=== PATIENT | male | born 1985 | race African-American/Black ===

== ENCOUNTER 2016-07-19 21:53 | Emergency (ER) | payer BC, OTHER ==
[~2016-07-19] VITALS: Ht 170.2 cm; Wt 65.8 kg
--- NOTE | 2016-07-19 22:23 | PHYS DOC ---
Past Medical History Past Medical History: Asthma, Seizure Past Surgical History: No Surgical History Alcohol Use: None Drug Use: None Adult General Chief Complaint Chief Complaint: Palpitations HPI HPI Patient is a 30 year old male who presents with complaint chest pain and palpitations which started approximately 1 hour prior to arrival. Patient states that he has had similar symptoms in the past but states he has not had an episode for over a year. Patient states that he was sitting on the couch watching TV when the symptoms occurred. When asked if the patient was under stress at the time, the patient states "I could've been." Patient states his pain currently is 10 out of 10 and is in the middle of his chest. Patient denies radiation of pain. Patient states that he has associated shortness of breath. Patient denies any known exacerbating factors. History of seizure disorder and is currently on Depakote. Review of Systems Review of Systems Constitutional: Denies fever or chills [] Eyes: Denies change in visual acuity, redness, or eye pain [] HENT: Denies nasal congestion or sore throat [] Respiratory: Shortness of breath [] Cardiovascular: Chest pain, palpitations [] GI: Denies abdominal pain, nausea, vomiting, bloody stools or diarrhea [] : Denies dysuria or hematuria [] Musculoskeletal: Denies back pain or joint pain [] Integument: Denies rash or skin lesions [] Neurologic: Denies headache, focal weakness or sensory changes [] Current Medications Current Medications Current Medications Medications (Trade) Dose Ordered Sig/Bird Start Time Stop Time Status Last Admin Dose Admin Aspirin (Children'S Aspirin) 324 mg 1X ONCE 07/19/16 22:30 07/19/16 22:31 DC 07/19/16 22:25 324 MG Lorazepam 1 mg 1 mg 1X ONCE 07/19/16 22:30 07/19/16 22:31 DC 07/19/16 22:24 1 MG Sodium Chloride (Iv Sodium Chloride 0.9% 1000ml Bag) 1,000 ml @ 1,000 mls/hr Q1H 07/19/16 22:30 07/19/16 23:29 DC 07/19/16 22:24 1,000 MLS/HR Allergies Allergies Allergies Coded Allergies Type Severity Reaction Last Updated Verified No Known Drug Allergies 07/19/16 No Physical Exam Physical Exam Constitutional: Alert, afebrile, appears anxious. [] HENT: Normocephalic, atraumatic, bilateral external ears normal, oropharynx moist, no oral exudates, nose normal. [] Eyes: PERRLA, EOMI, conjunctiva normal, no discharge. [] Neck: Normal range of motion, no tenderness, supple, no stridor. [] Cardiovascular:Heart rate regular rhythm, no murmur [] Lungs & Thorax: Bilateral breath sounds clear to auscultation [] Abdomen: Bowel sounds normal, soft, no tenderness, no masses, no pulsatile masses. [] Skin: Warm, dry, no erythema, no rash. [] Back: No tenderness, no CVA tenderness. [] Extremities: No tenderness, no cyanosis, no clubbing, ROM intact, no edema. [] Neurologic: Alert and oriented X 3, normal motor function, normal sensory function, no focal deficits noted. [] Current Patient Data Vital Signs Vital Signs Date Time Temp Pulse Resp B/P Pulse Ox O2 Delivery O2 Flow Rate FiO2 07/19/16 22:05 98.1 78 16 121/83 99 Room Air 98.1 Lab Values Laboratory Tests Test 07/19/16 22:00 07/19/16 22:54 White Blood Count 5.5x10^3/uL (4.0-11.0) Red Blood Count 6.63x10^6/uL (4.30-5.70) H Hemoglobin 14.1g/dL (13.0-17.5) Hematocrit 44.9% (39.0-53.0) Mean Corpuscular Volume 68fL (79-100) L Mean Corpuscular Hemoglobin 21pg (25-35) L Mean Corpuscular Hemoglobin Concent 32g/dL (31-37) Red Cell Distribution Width 15.5% (11.5-14.5) H Platelet Count 161x10^3/uL (140-400) Neutrophils (%) (Auto) 40% (31-73) Lymphocytes (%) (Auto) 42% (24-48) Monocytes (%) (Auto) 13% (0-9) H Eosinophils (%) (Auto) 4% (0-3) H Basophils (%) (Auto) 1% (0-3) Neutrophils # (Auto) 2.2x10^3uL (1.8-7.7) Lymphocytes # (Auto) 2.3x10^3/uL (1.0-4.8) Monocytes # (Auto) 0.7x10^3/uL (0.0-1.1) Eosinophils # (Auto) 0.2x10^3/uL (0.0-0.7) Basophils # (Auto) 0.0x10^3/uL (0.0-0.2) Platelet Estimate Adequate (ADEQUATE) Hypochromasia Mod Microcytosis Marked D-Dimer (Stephanie) < 0.27ug/mlFEU (0.00-0.50) Sodium Level 142mmol/L (136-145) Potassium Level 3.4mmol/L (3.5-5.1) L Chloride Level 104mmol/L (98-107) Carbon Dioxide Level 30mmol/L (21-32) Anion Gap 8 (6-14) Blood Urea Nitrogen 12mg/dL (8-26) Creatinine 1.2mg/dL (0.7-1.3) Estimated GFR (Cockcroft-Gault) 70.2 Glucose Level 101mg/dL (70-99) H Calcium Level 8.5mg/dL (8.5-10.1) Magnesium Level 1.8mg/dL (1.8-2.4) Total Bilirubin 0.3mg/dL (0.2-1.0) Direct Bilirubin 0.1mg/dL (0.0-0.2) Aspartate Amino Transferase (AST) 22U/L (15-37) Alanine Aminotransferase (ALT) 46U/L (16-63) Alkaline Phosphatase 91U/L (46-116) Creatine Kinase 137U/L (39-308) Creatine Kinase MB (Mass) < 0.5ng/mL (0.0-3.6) Creatine Kinase MB Relative Index 0.4% (0-4) Troponin I Quantitative < 0.017ng/mL (0.000-0.055) Total Protein 7.7g/dL (6.4-8.2) Albumin 3.7g/dL (3.4-5.0) Lipase 224U/L (73-393) Urine Collection Type Unknown Urine Color Yellow Urine Clarity Clear Urine pH 7.0 Urine Specific [place] 1.020 Urine Protein Negativemg/dL (NEG-TRACE) Urine Glucose (UA) Negativemg/dL (NEG) Urine Ketones (Stick) Negativemg/dL (NEG) Urine Blood Negative (NEG) Urine Nitrite Negative (NEG) Urine Bilirubin Negative (NEG) Urine Urobilinogen Dipstick 1.0mg/dL (0.2 mg/dL) Urine Leukocyte Esterase Negative (NEG) Urine RBC 0/HPF (0-2) Urine WBC 0/HPF (0-4) Urine Squamous Epithelial Cells Few/LPF Urine Bacteria 0/HPF (0-FEW) Urine Mucus Mod/LPF Urine Opiates Screen Neg (NEG) Urine Methadone Screen Neg (NEG) Urine Barbiturates Neg (NEG) Urine Phencyclidine Screen Neg (NEG) Urine Amphetamine/Methamphetamine Neg (NEG) Urine Benzodiazepines Screen Neg (NEG) Urine Cocaine Screen Neg (NEG) Urine Cannabinoids Screen Neg (NEG) Urine Ethyl Alcohol Neg (NEG) Laboratory Tests 07/19/16 22:00 Laboratory Tests 07/19/16 22:00 EKG EKG Interpreted by me: Heart rate 77, sinus rhythm, normal intervals, normal axis, no acute ST/T-wave abnormalities present [] Radiology/Procedures Radiology/Procedures One view AP chest x-ray interpreted by me: No pulmonary infiltrates or effusions , normal cardiac silhouette [] Course & Med Decision Making Course & Med Decision Making Pertinent Labs and Imaging studies reviewed. (See chart for details) Patient was given aspirin and Ativan in the emergency department. Patient's labwork unremarkable and does not show any acute cardiopulmonary life- threatening process. Patient's symptoms are likely consistent with acid reflux disease which patient admits to history of. Patient's symptoms may also be due to chest wall inflammation. Patient will be started on Pepcid and recommended to use Aleve twice daily for the next week with recommended follow-up in 3-5 days with primary doctor. Advised return emergency department for any worsening symptoms. Patient voiced understanding and in agreement with treatment plan. Dragon Disclaimer Dragon Disclaimer This electronic medical record was generated, in whole or in part, using a voice recognition dictation system. Departure Departure Impression: Primary Impression: Chest pain Disposition: HOME, SELF-CARE Condition: IMPROVED Patient Instructions: Chest Pain (Nonspecific) Additional Instructions: Follow-up to primary doctor in the next 3-5 days. It is recommended that you use Aleve twice daily for the next 7 days for treatment of your pain. Return to the emergency department for any worsening symptoms. Scripts Famotidine (Pepcid)20 Mg [id number] Mg PO BID #30 TAB Prov:THA SMITH MD 07/19/16 Problem Qualifiers Primary Impression: Chest pain Chest pain type: unspecified Qualified Code: R07.9 - Chest pain, unspecified THA SMITH MD Jul 19, 2016 22:23
[2016-07-19 22:27] LABS: BASO % 1 % (0-3); EOS % 4 % (0-3); HEMATOCRIT 44.9 % (39.0-53.0); HEMOGLOBIN 14.1 g/dL (13.0-17.5); LYMPH # 2.3 x10^3/uL (1.0-4.8); LYMPH % 42 % (24-48); MEAN CORPUSCULAR HEMOGLOBIN 21 pg (25-35); MEAN CORPUSCULAR HGB CONC 32 g/dL (31-37); MEAN CORPUSCULAR VOLUME 68 fL (79-100); MONO % 13 % (0-9); NEUT % 40 % (31-73); PLATELET COUNT 161 x10^3/uL (140-400); RED BLOOD COUNT 6.63 x10^6/uL (4.30-5.70); RED CELL DISTRIBUTION WIDTH 15.5 % (11.5-14.5); WHITE BLOOD COUNT 5.5 x10^3/uL (4.0-11.0)
[2016-07-19] MEDS ORDERED: IV NORMAL SALINE 1000ML BAG 1,000 ML IV SCH (22:30)
[2016-07-19] MEDS ORDERED: ASPIRIN CHEWABLE 81 MG TABLET. PO ONE (22:30)
[2016-07-19 22:38] LABS: CALCIUM 8.5 mg/dL (8.5-10.1); CREATININE 1.2 mg/dL (0.7-1.3); GFR 70.2; POTASSIUM 3.4 mmol/L (3.5-5.1)
[2016-07-19 22:44] LABS: ALBUMIN 3.7 g/dL (3.4-5.0); DIRECT BILIRUBIN 0.1 mg/dL (0.0-0.2); MAGNESIUM 1.8 mg/dL (1.8-2.4); TOTAL BILIRUBIN 0.3 mg/dL (0.2-1.0); TOTAL PROTEIN 7.7 g/dL (6.4-8.2)
[2016-07-19 22:50] LABS: PLT ESTIMATE ADEQUATE (ADEQUATE)
[2016-07-19 22:51] LABS: CREATINE KINASE 137 U/L (39-308); HYPOCHROMIA MOD; MICROCYTOSIS MARKED
[2016-07-19 22:57] LABS: CKMB MASS < 0.5 ng/mL (0.0-3.6)
[2016-07-19 23:01] LABS: BILIRUBIN,URINE NEGATIVE (NEG); GLUCOSE,URINE NEGATIVE (NEG); NITRITE,URINE NEGATIVE (NEG); PROTEIN,URINE NEGATIVE (NEG-TRACE)
[2016-07-19 23:06] LABS: BACTERIA,URINE 0 /HPF (0-FEW); RBC,URINE 0 /HPF (0-2); SQUAMOUS EPITHELIAL CELL,UR FEW /LPF; WBC,URINE 0 /HPF (0-4)
[2016-07-19 23:07] LABS: BARBITURATES NEG (NEG); BENZODIAZEPINES NEG (NEG); CANNABINOIDS NEG (NEG); COCAINE NEG (NEG); METHADONE NEG (NEG); OPIATES NEG (NEG); PHENCYCLIDINE NEG (NEG)
[2016-07-19] MEDS ORDERED: FAMO-63 PO (23:56)
[2016-07-20] VITALS: BP 114/76
--- NOTE | 2016-07-20 08:32 | EKG ---
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
--- NOTE | 2016-07-20 08:46 | RAD ---
Portable AP view CXR: Clinical indications: Chest pain today. Comparison: June 10, 2010. Findings: No acute lung infiltrate or pleural effusion or pulmonary edema or lung mass or pneumothorax is seen. The heart size, pulmonary vasculature, mediastinum and both tamiko are unremarkable. Impression: No acute radiographic abnormality is seen.
== END 2016-07-20 00:10 | disposition home or self-care (01) ==
LOC: ER 21:53
DX: R07.9 Chest pain, unspecified (principal); R00.2 Palpitations; R06.02 Shortness of breath; J45.909 Unspecified asthma, uncomplicated; G40.909 Epilepsy, unspecified, not intractable, without status epilepticus; Z79.899 Other long term (current) drug therapy
CPT/HCPCS: 36415; 71010; 80048; 80076; 80305; 80320; 81001; 82553; 83690; 83735; 84484; 85007; 85027; 85379; 93005; 96361; 96374; 99285; J2060; J7030; G0481

== ENCOUNTER 2016-10-21 12:02 | Emergency (ER) | payer BC, OTHER ==
[~2016-10-21] VITALS: Ht 170.2 cm; Wt 65.8 kg
[~2016-10-21 12:02] MED LIST: FAMO-63 PO
[2016-10-21] MEDS ORDERED: cefTRIAXone IM 250 MG VIAL IM ONE (12:45)
[2016-10-21] MEDS ORDERED: AZITHROMYCIN 250 MG TABLET. PO ONE (12:45)
[2016-10-21] MEDS ORDERED: metroNIDAZOLE 500 MG TABLET PO ONE (12:45)
[2016-10-21 13:15] VITALS: BP 158/99
--- NOTE | 2016-10-21 13:23 | PHYS DOC ---
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 Spoke with patient in regards to being sexually active he has one sexual partner with no protection. He states his partner has been treated for a social transmitted infection which she thinks was Trichomonas. He denies any penile drainage she denies any difficulty with urination. He is unsure whether he is having some abdominal pain or discomfort. He denies any nausea or vomiting he denies any back pain or discomfort. Review of Systems Review of Systems Constitutional: Denies fever or chills [] Eyes: Denies change in visual acuity, redness, or eye pain [] HENT: Denies nasal congestion or sore throat [] Respiratory: Denies cough or shortness of breath [] Cardiovascular: No additional information not addressed in HPI [] GI: Denies abdominal pain, nausea, vomiting, bloody stools or diarrhea [] : Denies dysuria or hematuria [] Musculoskeletal: Denies back pain or joint pain [] Integument: Denies rash or skin lesions [] Neurologic: Denies headache, focal weakness or sensory changes [] Endocrine: Denies polyuria or polydipsia [] Patient states he is here to be treated for sexually transmitted infections. Current Medications Current Medications Current Medications Medications (Trade) Dose Ordered Sig/Bird Start Time Stop Time Status Last Admin Dose Admin Azithromycin (Zithromax) 1,000 mg 1X ONCE 10/21/16 12:45 10/21/16 12:46 DC Ceftriaxone Sodium (Rocephin Im) 250 mg 1X ONCE 10/21/16 12:45 10/21/16 12:46 DC Metronidazole (Flagyl) 2,000 mg 1X ONCE 10/21/16 12:45 10/21/16 12:46 DC Allergies Allergies Allergies Coded Allergies Type Severity Reaction Last Updated Verified No Known Drug Allergies 07/19/16 No Physical Exam Physical Exam Constitutional: Well developed, well nourished, no acute distress, non-toxic appearance. [] HENT: Normocephalic, atraumatic, bilateral external ears normal, oropharynx moist, no oral exudates, nose normal. [] Eyes: PERRLA, EOMI, conjunctiva normal, no discharge. [] Neck: Normal range of motion, no tenderness, supple, no stridor. [] Cardiovascular:Heart rate regular rhythm, no murmur [] Lungs & Thorax: Bilateral breath sounds clear to auscultation [] Skin: Warm, dry, no erythema, no rash. [] Back: No tenderness Extremities: No tenderness, no cyanosis, no clubbing, ROM intact, no edema. [] Neurologic: Alert and oriented X 3, normal motor function, normal sensory function, no focal deficits noted. [] Psychologic: Affect normal, judgement normal, mood normal. [] EKG EKG [] Radiology/Procedures Radiology/Procedures [] Course & Med Decision Making Course & Med Decision Making Pertinent Labs and Imaging studies reviewed. (See chart for details) Patient's urine was sent for STD check. Patient will be prophylactically be treated for STDs with Rocephin and Zithromax and Flagyl. Patient was instructed to not have sexual intercourse for the next 2 weeks. He was also instructed he would be notified by phone if the results are positive. Patient will be discharged home in stable condition signs and symptoms to return to the emergency department have been provided. [] Dragon Disclaimer Dragon Disclaimer This electronic medical record was generated, in whole or in part, using a voice recognition dictation system. Departure Departure Impression: Primary Impression: Concern about STD in male without diagnosis Disposition: 01 HOME, SELF-CARE Condition: STABLE Referrals: JO ANN SCOTT (PCP) Patient Instructions: Sexually Transmitted Disease Additional Instructions: Activity as tolerated. Medications as prescribed. Such as Tylenol or ibuprofen for pain and discomfort. You've been treated for sexual transmitted infections. You'll be contacted by phone if the results are positive. Refrain from sexual intercourse for the next 2 weeks. In the future wear condoms or refrain from sexual intercourse to prevent sexually transmitted infections from being transmitted. Follow-up the primary care physician in the next week. Return back to emergency prior signs symptoms become worse. MAGEN MITCHELL APRN Oct 21, 2016 13:23
== END 2016-10-21 13:42 | disposition home or self-care (01) ==
LOC: ER 12:02
DX: Z20.2 Contact with and (suspected) exposure to infections with a predominantly sexual mode of transmission (principal); J45.909 Unspecified asthma, uncomplicated
CPT/HCPCS: 87491; 87591; 96372; 99284; J0696; Q0144

== ENCOUNTER 2017-04-11 10:39 | Emergency (ER) | payer OTHER, BC ==
[2017-04-11 11:25] LABS: BILIRUBIN,URINE SMALL (NEG); CLARITY,URINE CLOUDY; COLOR,URINE YELLOW; GLUCOSE,URINE NEGATIVE (NEG); NITRITE,URINE NEGATIVE (NEG); PROTEIN,URINE NEGATIVE (NEG-TRACE)
[2017-04-11 11:38] LABS: BACTERIA,URINE MOD /HPF (0-FEW); RBC,URINE FOBS /HPF (0-2); WBC,URINE TNTC /HPF (0-4)
[2017-04-11] MEDS: AZITHROMYCIN 250 MG TABLET. PO (12:07)
[2017-04-11] MEDS: cefTRIAXone IM 250 MG VIAL IM (12:08)
[2017-04-11] MEDS: metroNIDAZOLE 500 MG TABLET PO (12:08)
== END 2017-04-11 12:25 | disposition home or self-care (01) ==
LOC: ER 10:39
DX: Z11.3 Encounter for screening for infections with a predominantly sexual mode of transmission (principal); J45.909 Unspecified asthma, uncomplicated
CPT/HCPCS: 81001; 87491; 87591; 96372; 99284-25; J0696; Q0144

== ENCOUNTER 2018-02-14 19:48 | Emergency (ER) | payer OTHER ==
[~2018-02-14] VITALS: Ht 172.7 cm; Wt 65.8 kg
[~2018-02-14 19:48] MED LIST changes: +CYCL5TAB PO; +DOXY100T PO; +IBUP-1060 PO
--- NOTE | 2018-02-14 20:10 | PHYS DOC ---
Past Medical History Past Medical History: Asthma, Seizure, Other Additional Past Medical Histor: Past Surgical History: No Surgical History Alcohol Use: Rarely Drug Use: None Adult General Chief Complaint Chief Complaint: SEIZURE HPI HPI Patient is a 32 year old male presenting brought in by ambulance blood sugar 106 had a apparent witnessed seizure at [facility] apparently he has known seizure disorder who tells me he is not on any medications for that he does have a prior history of a traumatic brain injury. 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 Review of Systems Review of Systems Constitutional: Denies fever or chills [] Eyes: Denies change in visual acuity, redness, or eye pain [] HENT: Denies nasal congestion or sore throat [] Respiratory: Denies cough or shortness of breath [] Cardiovascular: No additional information not addressed in HPI [] GI: Denies abdominal pain, nausea, vomiting, bloody stools or diarrhea [] All other systems were reviewed and found to be within normal limits, except as documented in this note. Current Medications Current Medications Current Medications Medications (Trade) Dose Ordered Sig/Bird Start Time Stop Time Status Last Admin Dose Admin Lorazepam (Ativan) 2 mg 1X ONCE 02/14/18 20:30 02/14/18 20:31 DC 02/14/18 20:28 2 MG Allergies Allergies Allergies Coded Allergies Type Severity Reaction Last Updated Verified No Known Drug Allergies 07/19/16 No Physical Exam Physical Exam Constitutional: Well developed, well nourished, no acute distress, non-toxic appearance. [] HENT: Normocephalic, atraumatic, bilateral external ears normal, oropharynx moist, no oral exudates, nose normal. [] Eyes: PERRLA, EOMI, conjunctiva normal, no discharge. [] Neck: Normal range of motion, no tenderness, supple, no stridor. [] Pulmonary: Normal respiratory effort no increased work of breathing no obvious chest wall trauma Skin: Warm, dry, no erythema, no rash. [] Back: No tenderness, no CVA tenderness. [] Extremities: No tenderness, no cyanosis, no clubbing, ROM intact, no edema. [] Neurologic: pt has strength and sensation intact. does appear to have retsing tremor that gets worse when i touch him lightly. cn's intact. gcs 15. Psychologic: Affect normal, judgement normal, mood normal. [] Current Patient Data Vital Signs Vital Signs Date Time Temp Pulse Resp B/P (MAP) Pulse Ox O2 Delivery O2 Flow Rate FiO2 02/14/18 20:12 97.8 86 20 144/87 (106) 100 Room Air 97.8 Lab Values Laboratory Tests Test 02/14/18 20:20 02/14/18 21:05 White Blood Count 4.8 x10^3/uL (4.0-11.0) Red Blood Count 6.47 x10^6/uL (4.30-5.70) H Hemoglobin 14.3 g/dL (13.0-17.5) Hematocrit 44.8 % (39.0-53.0) Mean Corpuscular Volume 69 fL (79-100) L Mean Corpuscular Hemoglobin 22 pg (25-35) L Mean Corpuscular Hemoglobin Concent 32 g/dL (31-37) Red Cell Distribution Width 16.1 % (11.5-14.5) H Platelet Count 134 x10^3/uL (140-400) L Neutrophils (%) (Auto) 33 % (31-73) Lymphocytes (%) (Auto) 50 % (24-48) H Monocytes (%) (Auto) 14 % (0-9) H Eosinophils (%) (Auto) 2 % (0-3) Basophils (%) (Auto) 0 % (0-3) Neutrophils # (Auto) 1.6 x10^3uL (1.8-7.7) L Lymphocytes # (Auto) 2.4 x10^3/uL (1.0-4.8) Monocytes # (Auto) 0.7 x10^3/uL (0.0-1.1) Eosinophils # (Auto) 0.1 x10^3/uL (0.0-0.7) Basophils # (Auto) 0.0 x10^3/uL (0.0-0.2) Platelet Estimate Decreased (ADEQUATE) Hypochromasia Mod Microcytosis Mod Ovalocytes Few Sodium Level 143 mmol/L (136-145) Potassium Level 3.4 mmol/L (3.5-5.1) L Chloride Level 108 mmol/L (98-107) H Carbon Dioxide Level 29 mmol/L (21-32) Anion Gap 6 (6-14) Blood Urea Nitrogen 9 mg/dL (8-26) Creatinine 1.1 mg/dL (0.7-1.3) Estimated GFR (Cockcroft-Gault) 92.7 BUN/Creatinine Ratio 8 (6-20) Glucose Level 78 mg/dL (70-99) Calcium Level 7.9 mg/dL (8.5-10.1) L Total Bilirubin 0.3 mg/dL (0.2-1.0) Aspartate Amino Transferase (AST) 25 U/L (15-37) Alanine Aminotransferase (ALT) 50 U/L (16-63) Alkaline Phosphatase 51 U/L (46-116) Total Protein 6.6 g/dL (6.4-8.2) Albumin 3.3 g/dL (3.4-5.0) L Albumin/Globulin Ratio 1.0 (1.0-1.7) Ethyl Alcohol Level < 10 mg/dL (0-10) Urine Collection Type Unknown Urine Color Yellow Urine Clarity Cloudy Urine pH 8.0 Urine Specific [place] 1.015 Urine Protein Negative mg/dL (NEG-TRACE) Urine Glucose (UA) Negative mg/dL (NEG) Urine Ketones (Stick) Negative mg/dL (NEG) Urine Blood Negative (NEG) Urine Nitrite Negative (NEG) Urine Bilirubin Negative (NEG) Urine Urobilinogen Dipstick 0.2 mg/dL (0.2 mg/dL) Urine Leukocyte Esterase Negative (NEG) Urine RBC 0 /HPF (0-2) Urine WBC Occ /HPF (0-4) Urine Squamous Epithelial Cells Occ /LPF Urine Bacteria 0 /HPF (0-FEW) Urine Opiates Screen Neg (NEG) Urine Methadone Screen Neg (NEG) Urine Barbiturates Neg (NEG) Urine Phencyclidine Screen Neg (NEG) Urine Amphetamine/Methamphetamine Neg (NEG) Urine Benzodiazepines Screen Neg (NEG) Urine Cocaine Screen Neg (NEG) Urine Cannabinoids Screen Neg (NEG) Urine Ethyl Alcohol Neg (NEG) Laboratory Tests 02/14/18 20:20 Laboratory Tests 02/14/18 20:20 EKG EKG [] Radiology/Procedures Radiology/Procedures [] Course & Med Decision Making Course & Med Decision Making Pertinent Labs and Imaging studies reviewed. (See chart for details) Referral male with a prior history of traumatic brain injury apparently has what he calls spells unclear if this was true epilepsy or pseudoseizures based on the history he never lost consciousness nevertheless we'll do a head CT and basic labs as well as give Ativan and reassessment. [] REEVALUATION ct head neg mild somnolence after ativan mom at bedside last seizure unknown but had been on antiepileptics as a kid keppra ordered rx. pt is on depakote for mood stabiliization advised pmd f/u within 1-2 weeks to check on effect of meds. mom agreeable questions answered. Dragon Disclaimer Dragon Disclaimer This electronic medical record was generated, in whole or in part, using a voice recognition dictation system. Departure Departure Impression: Primary Impression: Seizure Disposition: 01 HOME, SELF-CARE Condition: STABLE Referrals: JO ANN SCOTT MD (PCP) Scripts Levetiracetam (KEPPRA) 500 Mg Tablet 1 TAB PO BID, #60 TAB 1 Refill Prov: GLO VASQUEZ MD 02/14/18 GLO VASQUEZ MD Feb 14, 2018 20:10
[2018-02-14 20:40] LABS: BASO % 0 % (0-3); EOS # 0.1 x10^3/uL (0.0-0.7); EOS % 2 % (0-3); HEMATOCRIT 44.8 % (39.0-53.0); HEMOGLOBIN 14.3 g/dL (13.0-17.5); LYMPH # 2.4 x10^3/uL (1.0-4.8); LYMPH % 50 % (24-48); MEAN CORPUSCULAR HEMOGLOBIN 22 pg (25-35); MEAN CORPUSCULAR HGB CONC 32 g/dL (31-37); MEAN CORPUSCULAR VOLUME 69 fL (79-100); MONO # 0.7 x10^3/uL (0.0-1.1); MONO % 14 % (0-9); NEUT # 1.6 x10^3uL (1.8-7.7); NEUT % 33 % (31-73); PLATELET COUNT 134 x10^3/uL (140-400); RED BLOOD COUNT 6.47 x10^6/uL (4.30-5.70); RED CELL DISTRIBUTION WIDTH 16.1 % (11.5-14.5); WHITE BLOOD COUNT 4.8 x10^3/uL (4.0-11.0)
[2018-02-14 20:48] LABS: CALCIUM 7.9 mg/dL (8.5-10.1); CREATININE 1.1 mg/dL (0.7-1.3); GFR 92.7; POTASSIUM 3.4 mmol/L (3.5-5.1)
[2018-02-14 20:57] LABS: ALBUMIN 3.3 g/dL (3.4-5.0); TOTAL BILIRUBIN 0.3 mg/dL (0.2-1.0); TOTAL PROTEIN 6.6 g/dL (6.4-8.2)
[2018-02-14 21:10] LABS: HYPOCHROMIA MOD; MICROCYTOSIS MOD; OVALOCYTES FEW; PLT ESTIMATE DECREASED (ADEQUATE)
[2018-02-14 21:23] LABS: BILIRUBIN,URINE NEGATIVE (NEG); CLARITY,URINE CLOUDY; COLOR,URINE YELLOW; NITRITE,URINE NEGATIVE (NEG); PROTEIN,URINE NEGATIVE (NEG-TRACE); UROBILINOGEN,URINE 0.2 mg/dL (0.2 mg/dL)
[2018-02-14 21:29] LABS: BACTERIA,URINE 0 /HPF (0-FEW); RBC,URINE 0 /HPF (0-2); WBC,URINE OCC /HPF (0-4)
--- NOTE | 2018-02-14 21:29 | RAD ---
CT head without contrast 02/14/2018 Clinical indications: Seizure with history of brain trauma. COMPARISON: None. TECHNIQUE: Multiple CT images of the head were obtained without contrast. *One or more of the following individualized dose reduction techniques were utilized for this examination: 1. Automated exposure control. 2. Adjustment of the mA and/or kV according to patient size. 3. Use of iterative reconstruction technique. FINDINGS: No acute intracranial hemorrhage or extra-axial fluid collection. There is moderate atrophy of the right posterior cerebrum involving the posterior right frontal, parietal, posterior right temporal and occipital lobes with ex vacuo dilatation of the atrium and temporal horns right lateral ventricle. The moser-white matter interfaces are otherwise maintained. No midline shift. The basal cisterns are patent. IMPRESSION: 1. Moderate right posterior cerebral atrophy may be due to prior trauma, injury or infarct. 2. No acute intracranial hemorrhage. Electronically signed by: Lucho Hinojosa MD (02/14/2018 9:26 PM) [facility]
[2018-02-14 21:30] LABS: SQUAMOUS EPITHELIAL CELL,UR OCC /LPF
[2018-02-14 21:31] LABS: BARBITURATES NEG (NEG); BENZODIAZEPINES NEG (NEG); CANNABINOIDS NEG (NEG); COCAINE NEG (NEG); METHADONE NEG (NEG); OPIATES NEG (NEG); PHENCYCLIDINE NEG (NEG)
[2018-02-14 21:35] LABS: AMPHETAMINE/METHAMPHETAMINE NEG (NEG)
[2018-02-14] MEDS ORDERED: LEVE500T56 PO (21:42)
[2018-02-14 22:01] VITALS: BP 140/85
== END 2018-02-14 22:30 | disposition home or self-care (01) ==
LOC: ER 19:48
DX: R56.9 Unspecified convulsions (principal); J45.909 Unspecified asthma, uncomplicated; Z87.820 Personal history of traumatic brain injury
CPT/HCPCS: 36415; 70450; 80053; 80307; 81001; 85025; 96374; 99284; G0480; J2060

== ENCOUNTER 2018-02-21 12:15 | Emergency (ER) | payer OTHER ==
[~2018-02-21] VITALS: Ht 170.2 cm; Wt 68.0 kg
[~2018-02-21 12:15] MED LIST changes: +LEVE500T56 PO
[2018-02-21] MEDS ORDERED: levETIRAcetam 1,000 MG in IV DEXTROSE 5% 100ML 100 ML IV ONE (13:30)
[2018-02-21 13:50] LABS: CALCIUM 8.9 mg/dL (8.5-10.1); CREATININE 1.1 mg/dL (0.7-1.3); GFR 92.7; MAGNESIUM 1.6 mg/dL (1.8-2.4); POTASSIUM 3.8 mmol/L (3.5-5.1)
[2018-02-21 13:54] LABS: VAL ACID 57 mcg/mL (50-100)
[2018-02-21 15:00] VITALS: BP 109/64
[2018-02-21] MEDS ORDERED: LEVE500T56 PO (15:25)
--- NOTE | 2018-02-21 15:31 | PHYS DOC ---
Past Medical History Past Medical History: Asthma, Seizure, Other Additional Past Medical Histor: Past Surgical History: No Surgical History Alcohol Use: Rarely Drug Use: None Adult General Chief Complaint Chief Complaint: SEIZURE HPI HPI Patient is a 32 year old male who presents with seizure activity. Patient states he has had seizures his entire life. He suffered some sort of brain damage or head injury when he was 2 weeks old. Today, he presents to the ER complaining of some seizure activity which she states to be shaking of the right and left upper extremities that does expand to the lower extremities. He is uncertain if he fell or had any loss of consciousness. Patient states he has seizures every day. He is not currently taking medication for prophylaxis. No additional complaints. No recent illness. Of note, the patient was evaluated in this emergency department in the last 4 weeks for a very similar complaint. At that time, he was started on Keppra. Patient states he is not currently taking this medication however. Patient also states he has no primary neurologist. Review of Systems Review of Systems Constitutional: Denies fever Eyes: Denies change in visual acuity HENT: Denies nasal congestion or sore throat Respiratory: Denies cough or shortness of breath Cardiovascular: No additional information not addressed in HPI GI: Denies : Denies Musculoskeletal: Denies back pain Integument: Denies Neurologic: Denies headache Endocrine: Denies polyuria All other systems were reviewed and found to be within normal limits, except as documented in this note. Current Medications Current Medications Current Medications Medications (Trade) Dose Ordered Sig/Bird Start Time Stop Time Status Last Admin Dose Admin Levetiracetam 1000 mg/Dextrose 110 ml @ 440 mls/hr 1X ONCE 02/21/18 13:30 02/21/18 13:44 DC 02/21/18 13:43 440 MLS/HR Allergies Allergies Allergies Coded Allergies Type Severity Reaction Last Updated Verified No Known Drug Allergies 07/19/16 No Physical Exam Physical Exam Constitutional: Well developed, well nourished, no acute distress HENT: Normocephalic, atraumatic, bilateral external ears normal, oropharynx moist Eyes: PERRLA, EOMI, conjunctiva normal Neck: Normal range of motion, no tenderness, supple Cardiovascular:Heart rate regular rhythm, no murmur Lungs & Thorax: Bilateral breath sounds clear to auscultation Abdomen: Bowel sounds normal, soft, no tenderness Skin: Warm, dry Extremities: No tenderness, no trauma Neurologic: Alert and oriented X 3, normal motor function, normal sensory function, no focal deficits noted Psychologic: Affect normal Current Patient Data Vital Signs Vital Signs Date Time Temp Pulse Resp B/P (MAP) Pulse Ox O2 Delivery O2 Flow Rate FiO2 02/21/18 13:30 66 98 02/21/18 12:15 98.5 20 125/75 (92) Room Air 98.5 Lab Values Laboratory Tests Test 02/21/18 13:28 Sodium Level 143 mmol/L (136-145) Potassium Level 3.8 mmol/L (3.5-5.1) Chloride Level 105 mmol/L (98-107) Carbon Dioxide Level 29 mmol/L (21-32) Anion Gap 9 (6-14) Blood Urea Nitrogen 12 mg/dL (8-26) Creatinine 1.1 mg/dL (0.7-1.3) Estimated GFR (Cockcroft-Gault) 92.7 Glucose Level 104 mg/dL (70-99) H Calcium Level 8.9 mg/dL (8.5-10.1) Magnesium Level 1.6 mg/dL (1.8-2.4) L Valproic Acid Level 57 mcg/mL (50-100) Valproic Acid Last Dose Date 02/21/18 Valproic Acid Last Dose Time 0700 Laboratory Tests 02/21/18 13:28 EKG EKG [] Radiology/Procedures Radiology/Procedures [] Course & Med Decision Making Course & Med Decision Making Pertinent Labs and Imaging studies reviewed. (See chart for details) Patient was evaluated in the emergency department for seizure disorder. He is not currently compliant with any medical therapies to prevent seizures. He was given a Keppra load in the ER. He is again given a prescription for the same medication to take at home. No CT scan was indicated today. The patient was scanned already in the last couple of weeks on a prior visit to this ER. His neurologic exam was normal. Patient is strongly encouraged to fill the Medication take it. He is also provided the phone number to the on-call neurologist today and advised to contact that physician to make a follow-up appointment. All of his questions are answered prior to discharge home. No seizure activity during the ED course. Dragon Disclaimer Dragon Disclaimer This electronic medical record was generated, in whole or in part, using a voice recognition dictation system. Departure Departure Impression: Primary Impression: Seizure disorder Disposition: 01 HOME, SELF-CARE Condition: GOOD Referrals: BENTLEY HAYES MD Patient Instructions: Seizure, Adult Scripts Levetiracetam (KEPPRA) 500 Mg Tablet 500 MG PO BID for 30 Days, #60 TAB 2 Refills Prov: ARIE MALAGON DO 02/21/18 ARIE MALAGON DO Feb 21, 2018 15:31
== END 2018-02-21 15:45 | disposition home or self-care (01) ==
LOC: ER 12:15
DX: G40.909 Epilepsy, unspecified, not intractable, without status epilepticus (principal); J45.909 Unspecified asthma, uncomplicated
CPT/HCPCS: 36415; 80048; 80164; 83735; 96365; 99283; J1953

== ENCOUNTER 2018-02-27 23:44 | Emergency (ER) | payer OTHER ==
[~2018-02-27] VITALS: Ht 170.2 cm; Wt 68.0 kg
[2018-02-28 00:06] LABS: BASO # 0.1 x10^3/uL (0.0-0.2); BASO % 2 % (0-3); EOS # 0.1 x10^3/uL (0.0-0.7); EOS % 3 % (0-3); HEMATOCRIT 41.5 % (39.0-53.0); HEMOGLOBIN 13.5 g/dL (13.0-17.5); LYMPH # 2.4 x10^3/uL (1.0-4.8); LYMPH % 52 % (24-48); MEAN CORPUSCULAR HEMOGLOBIN 22 pg (25-35); MEAN CORPUSCULAR HGB CONC 33 g/dL (31-37); MEAN CORPUSCULAR VOLUME 69 fL (79-100); MONO # 0.6 x10^3/uL (0.0-1.1); MONO % 12 % (0-9); NEUT # 1.4 x10^3uL (1.8-7.7); NEUT % 31 % (31-73); PLATELET COUNT 135 x10^3/uL (140-400); RED BLOOD COUNT 6.01 x10^6/uL (4.30-5.70); RED CELL DISTRIBUTION WIDTH 15.7 % (11.5-14.5); WHITE BLOOD COUNT 4.6 x10^3/uL (4.0-11.0)
[2018-02-28 00:20] LABS: CALCIUM 8.8 mg/dL (8.5-10.1); CREATININE 1.3 mg/dL (0.7-1.3); GFR 76.5; POTASSIUM 3.5 mmol/L (3.5-5.1)
[2018-02-28 00:26] LABS: ALBUMIN 3.6 g/dL (3.4-5.0); ALBUMIN/GLOBULIN RATIO 1.1 (1.0-1.7); TOTAL BILIRUBIN 0.2 mg/dL (0.2-1.0); TOTAL PROTEIN 6.9 g/dL (6.4-8.2)
[2018-02-28] MEDS ORDERED: levETIRAcetam 500 MG in IV DEXTROSE 5% 100ML 100 ML IV ONE (00:30)
[2018-02-28 01:30] VITALS: BP 111/72
--- NOTE | 2018-02-28 01:40 | PHYS DOC ---
Past Medical History Past Medical History: Asthma, Seizure, Other Additional Past Medical Histor: Past Surgical History: No Surgical History Additional Information: FULL PACK A DAY Alcohol Use: None Drug Use: None Adult General Chief Complaint Chief Complaint: SEIZURE HPI HPI Patient is a 32-year-old male who presents from work with report of having had seizure. Coworkers state that patient appeared to have generalized shaking that they estimated at about 15 minutes. EMS indicates that patient had a repeat seizure ring their evaluation and an IV was established and patient was given IV Versed. EMS states that seizure at that point had resolved. Patient was seen here recently for seizure and had been started on Keppra. Patient states that he has been taking the Keppra as prescribed but he has not yet followed up with a neurologist. Patient does complain of body aches all over. He denies any chest pain, shortness of breath, nausea or vomiting. Patient denies any oral pain and was not incontinent of urine. Review of Systems Review of Systems Constitutional: Denies fever or chills [] Respiratory: Denies cough or shortness of breath [] Cardiovascular: No additional information not addressed in HPI [] Musculoskeletal: Complains of diffuse muscle and joint pain [] Integument: Denies rash or skin lesions [] Neurologic: Complains of seizure[] All other systems were reviewed and found to be within normal limits, except as documented in this note. Current Medications Current Medications Current Medications Medications (Trade) Dose Ordered Sig/Bird Start Time Stop Time Status Last Admin Dose Admin Levetiracetam 500 mg/Dextrose 105 ml @ 420 mls/hr 1X ONCE 02/28/18 00:30 02/28/18 00:44 DC 02/28/18 00:05 420 MLS/HR Allergies Allergies Allergies Coded Allergies Type Severity Reaction Last Updated Verified No Known Drug Allergies 07/19/16 No Physical Exam Physical Exam Constitutional: Well developed, well nourished, no acute distress, non-toxic appearance. [] HENT: Normocephalic, atraumatic, bilateral external ears normal, oropharynx moist, no oral exudates, nose normal. [] Eyes: PERRLA, EOMI, conjunctiva normal, no discharge. [] Neck: Normal range of motion, no tenderness, supple, no stridor. [] Cardiovascular:Heart rate regular rhythm, no murmur [] Lungs & Thorax: Bilateral breath sounds clear to auscultation [] Abdomen: Bowel sounds normal, soft, no tenderness, no masses, no pulsatile masses. [] Skin: Warm, dry, no erythema, no rash. [] Back: No tenderness, no CVA tenderness. [] Extremities: No tenderness, no cyanosis, no clubbing, ROM intact, no edema. [] Neurologic: Alert and oriented X 3, normal motor function, normal sensory function, no focal deficits noted. [] Psychologic: Affect normal, judgement normal, mood normal. [] Current Patient Data Vital Signs Vital Signs Date Time Temp Pulse Resp B/P (MAP) Pulse Ox O2 Delivery O2 Flow Rate FiO2 02/28/18 01:30 76 96 02/27/18 23:47 96.4 16 134/83 (100) Room Air 96.4 Lab Values Laboratory Tests Test 02/27/18 23:54 White Blood Count 4.6 x10^3/uL (4.0-11.0) Red Blood Count 6.01 x10^6/uL (4.30-5.70) H Hemoglobin 13.5 g/dL (13.0-17.5) Hematocrit 41.5 % (39.0-53.0) Mean Corpuscular Volume 69 fL (79-100) L Mean Corpuscular Hemoglobin 22 pg (25-35) L Mean Corpuscular Hemoglobin Concent 33 g/dL (31-37) Red Cell Distribution Width 15.7 % (11.5-14.5) H Platelet Count 135 x10^3/uL (140-400) L Neutrophils (%) (Auto) 31 % (31-73) Lymphocytes (%) (Auto) 52 % (24-48) H Monocytes (%) (Auto) 12 % (0-9) H Eosinophils (%) (Auto) 3 % (0-3) Basophils (%) (Auto) 2 % (0-3) Neutrophils # (Auto) 1.4 x10^3uL (1.8-7.7) L Lymphocytes # (Auto) 2.4 x10^3/uL (1.0-4.8) Monocytes # (Auto) 0.6 x10^3/uL (0.0-1.1) Eosinophils # (Auto) 0.1 x10^3/uL (0.0-0.7) Basophils # (Auto) 0.1 x10^3/uL (0.0-0.2) Platelet Estimate Pending Sodium Level 140 mmol/L (136-145) Potassium Level 3.5 mmol/L (3.5-5.1) Chloride Level 106 mmol/L (98-107) Carbon Dioxide Level 31 mmol/L (21-32) Anion Gap 3 (6-14) L Blood Urea Nitrogen 13 mg/dL (8-26) Creatinine 1.3 mg/dL (0.7-1.3) Estimated GFR (Cockcroft-Gault) 76.5 BUN/Creatinine Ratio 10 (6-20) Glucose Level 104 mg/dL (70-99) H Calcium Level 8.8 mg/dL (8.5-10.1) Total Bilirubin 0.2 mg/dL (0.2-1.0) Aspartate Amino Transferase (AST) 26 U/L (15-37) Alanine Aminotransferase (ALT) 53 U/L (16-63) Alkaline Phosphatase 72 U/L (46-116) Total Protein 6.9 g/dL (6.4-8.2) Albumin 3.6 g/dL (3.4-5.0) Albumin/Globulin Ratio 1.1 (1.0-1.7) Laboratory Tests 02/27/18 23:54 Laboratory Tests 02/27/18 23:54 EKG EKG [] Radiology/Procedures Radiology/Procedures [] Course & Med Decision Making Course & Med Decision Making Pertinent Labs and Imaging studies reviewed. (See chart for details) [] Dragon Disclaimer Dragon Disclaimer This electronic medical record was generated, in whole or in part, using a voice recognition dictation system. Departure Departure Impression: Primary Impression: Seizure Disposition: 01 HOME, SELF-CARE Condition: STABLE Referrals: JO ANN SCOTT MD (PCP) DENNYS DUGGAN MD Patient Instructions: Seizure, Adult Additional Instructions: Increase her dosage of Keppra by 500 mg per day for a total of 1000 mg in the morning and 500 mg at night. Scripts Levetiracetam (KEPPRA) 500 Mg Tablet 1 TAB PO DAILY, #30 TAB Prov: MARITA SANCHEZ Jr. DO 02/28/18 MARITA SANCHEZ Jr. DO Feb 28, 2018 01:40
[2018-02-28 02:14] LABS: BILIRUBIN,URINE NEGATIVE (NEG); CLARITY,URINE CLEAR; COLOR,URINE YELLOW; NITRITE,URINE NEGATIVE (NEG); PROTEIN,URINE NEGATIVE (NEG-TRACE)
[2018-02-28 02:21] LABS: BARBITURATES NEG (NEG); BENZODIAZEPINES POS (NEG); CANNABINOIDS NEG (NEG); COCAINE NEG (NEG); METHADONE NEG (NEG); OPIATES NEG (NEG); PHENCYCLIDINE NEG (NEG)
[2018-02-28 02:24] LABS: BACTERIA,URINE 0 /HPF (0-FEW); RBC,URINE 0 /HPF (0-2); WBC,URINE 0 /HPF (0-4)
[2018-02-28 02:25] LABS: AMPHETAMINE/METHAMPHETAMINE NEG (NEG)
[2018-02-28] MEDS ORDERED: LEVE500T56 PO (02:30)
[2018-02-28 04:24] LABS: PLT ESTIMATE ADEQUATE (ADEQUATE)
[2018-02-28 04:25] LABS: MICROCYTOSIS MOD; OVALOCYTES OCC; POIKILOCYTOSIS SLIGHT; ROULEAUX PRESENT
== END 2018-02-28 02:40 | disposition home or self-care (01) ==
LOC: ER 23:44
DX: R56.9 Unspecified convulsions (principal); J45.909 Unspecified asthma, uncomplicated; F17.200 Nicotine dependence, unspecified, uncomplicated
CPT/HCPCS: 36415; 80053; 80307; 81001; 85025; 96374; 99284; J1953

== ENCOUNTER 2018-03-02 12:00 | Emergency (ER) | payer OTHER ==
[~2018-03-02] VITALS: Ht 170.2 cm; Wt 65.8 kg
--- NOTE | 2018-03-02 12:19 | PHYS DOC ---
Past Medical History Past Medical History: Asthma, Seizure, Other Additional Past Medical Histor: Past Surgical History: No Surgical History Additional Information: 0.5 PPD-1 PPD Alcohol Use: None Drug Use: None Adult General Chief Complaint Chief Complaint: TREMORS HPI HPI Patient is a 32 year old male who presents with seizure. Patient has a long- standing seizure disorder. He's been seen in the emergency department several times in the past few weeks for seizures. He has not seen a neurologist or his primary care physician since being seen the first time in the emergency department. He reports that he has an appointment next week with his primary care physician. He is currently on Keppra, 1000 mg in the morning and 500 mg in the evening which looks like it has been titrated up during his past several visits while in the emergency department. He reports today's seizure stopped on its own, uncertain induration. No loss of bowel or bladder control. Reports that he has been getting less sleep than usual, going to bed at 2 in the morning for the past several days. He denies any drugs of abuse. Denies drinking alcohol.[] Review of Systems Review of Systems Constitutional: Denies fever or chills [] Eyes: Denies change in visual acuity, redness, or eye pain [] HENT: Denies nasal congestion or sore throat [] Respiratory: Denies cough or shortness of breath [] Cardiovascular: No chest pain or palpitations[] GI: Denies abdominal pain, nausea, vomiting, bloody stools or diarrhea [] : Denies dysuria or hematuria [] Musculoskeletal: Denies back pain or joint pain [] Integument: Denies rash or skin lesions [] Neurologic: Denies headache, focal weakness or sensory changes [] Endocrine: Denies polyuria or polydipsia [] All other systems were reviewed and found to be within normal limits, except as documented in this note. Current Medications Current Medications Current Medications Medications (Trade) Dose Ordered Sig/Bird Start Time Stop Time Status Last Admin Dose Admin Levetiracetam 500 mg/Dextrose 105 ml @ 420 mls/hr ONCE ONCE 03/02/18 12:20 03/02/18 12:34 DC 03/02/18 12:42 420 MLS/HR Allergies Allergies Allergies Coded Allergies Type Severity Reaction Last Updated Verified No Known Drug Allergies 07/19/16 No Physical Exam Physical Exam Constitutional: Well developed, well nourished, no acute distress, non-toxic appearance. [] HENT: Normocephalic, atraumatic, bilateral external ears normal, oropharynx moist, no oral exudates, nose normal. [] Eyes: PERRLA, EOMI, conjunctiva normal, no discharge. [] Neck: Normal range of motion, no tenderness, supple, no stridor. [] Cardiovascular:Heart rate regular rhythm, no murmur [] Lungs & Thorax: Bilateral breath sounds clear to auscultation [] Abdomen: Bowel sounds normal, soft, no tenderness, no masses, no pulsatile masses. [] Skin: Warm, dry, no erythema, no rash. [] Back: No tenderness, no CVA tenderness. [] Extremities: No tenderness, no cyanosis, no clubbing, ROM intact, no edema. [] Neurologic: Alert and oriented X 3, normal motor function, normal sensory function, no focal deficits noted. [] Psychologic: Affect normal, judgement normal, mood normal. [] Current Patient Data Vital Signs Vital Signs Date Time Temp Pulse Resp B/P (MAP) Pulse Ox O2 Delivery O2 Flow Rate FiO2 03/02/18 12:00 98.3 77 20 124/83 (97) 100 Room Air 98.3 Lab Values Laboratory Tests Test 03/02/18 12:31 White Blood Count 3.5 x10^3/uL (4.0-11.0) L Red Blood Count 6.44 x10^6/uL (4.30-5.70) H Hemoglobin 14.4 g/dL (13.0-17.5) Hematocrit 44.6 % (39.0-53.0) Mean Corpuscular Volume 69 fL (79-100) L Mean Corpuscular Hemoglobin 22 pg (25-35) L Mean Corpuscular Hemoglobin Concent 32 g/dL (31-37) Red Cell Distribution Width 15.9 % (11.5-14.5) H Platelet Count 137 x10^3/uL (140-400) L Neutrophils (%) (Auto) 36 % (31-73) Lymphocytes (%) (Auto) 47 % (24-48) Monocytes (%) (Auto) 15 % (0-9) H Eosinophils (%) (Auto) 2 % (0-3) Basophils (%) (Auto) 1 % (0-3) Neutrophils # (Auto) 1.3 x10^3uL (1.8-7.7) L Lymphocytes # (Auto) 1.6 x10^3/uL (1.0-4.8) Monocytes # (Auto) 0.5 x10^3/uL (0.0-1.1) Eosinophils # (Auto) 0.1 x10^3/uL (0.0-0.7) Basophils # (Auto) 0.0 x10^3/uL (0.0-0.2) Platelet Estimate Pending Sodium Level 143 mmol/L (136-145) Potassium Level 4.0 mmol/L (3.5-5.1) Chloride Level 105 mmol/L (98-107) Carbon Dioxide Level 32 mmol/L (21-32) Anion Gap 6 (6-14) Blood Urea Nitrogen 10 mg/dL (8-26) Creatinine 1.2 mg/dL (0.7-1.3) Estimated GFR (Cockcroft-Gault) 83.9 BUN/Creatinine Ratio 8 (6-20) Glucose Level 105 mg/dL (70-99) H Lactic Acid Level 1.4 mmol/L (0.4-2.0) Calcium Level 9.3 mg/dL (8.5-10.1) Total Bilirubin 0.4 mg/dL (0.2-1.0) Aspartate Amino Transferase (AST) 28 U/L (15-37) Alanine Aminotransferase (ALT) 57 U/L (16-63) Alkaline Phosphatase 54 U/L (46-116) Total Protein 7.1 g/dL (6.4-8.2) Albumin 3.6 g/dL (3.4-5.0) Albumin/Globulin Ratio 1.0 (1.0-1.7) Laboratory Tests 03/02/18 12:31 Laboratory Tests 03/02/18 12:31 EKG EKG EKG shows a sinus rhythm, 84 bpm, occasional PAC, normal axis at 65, normal QTC at 405 ms, no ST elevations.[] Radiology/Procedures Radiology/Procedures [] Course & Med Decision Making Course & Med Decision Making Pertinent Labs and Imaging studies reviewed. (See chart for details) ED course: Patient arrived by EMS, was transferred ported from there, to our bed without any complications. Patient tolerated exam well. Patient was given Keppra intravenously while in the emergency department. He tolerated this well. Patient's records from 14 February, as well as his 2 prior visits in February were reviewed along with CT scanning obtained on 14 February 2018. Given this recent imaging with no new trauma, did not feel that additional imaging was warranted at this time. After return of laboratory testing, this was discussed with the patient who voiced understanding. All Questions were answered. Medical decision making: This does not appear to be intractable seizures. Patient's white count was noted to be decreasing which is a known side effect of Keppra. No significant electrolyte abnormalities were noted. Given his recent increase several days ago of his Keppra dose, and while it can be increased by 1000 milligrams per day every 2 weeks, do not feel comfortable increasing his dosage at this time. Patient has follow-up with his primary care physician next Friday by patient's report at which point it would be reasonable to increase his dosing.[] Dragon Disclaimer Dragon Disclaimer This electronic medical record was generated, in whole or in part, using a voice recognition dictation system. Departure Departure Impression: Primary Impression: Seizure Disposition: HOME, SELF-CARE Condition: GOOD Referrals: JO ANN SCOTT MD (PCP) Follow-up with your doctor in 2 days. Patient Instructions: Seizure, Adult Additional Instructions: No driving until cleared by her primary care physician or neurologist. Follow- up with your primary care physician in 2 days. Take your medication as directed. Return to the ER if recurrence of seizures or any other concerns. KARAN DUNN DO Mar 02, 2018 12:19
--- NOTE | 2018-03-02 12:25 | EKG ---
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
[2018-03-02] MEDS: levETIRAcetam 500 MG in IV DEXTROSE 5% 100ML 100 ML IV ONE (12:42)
[2018-03-02 12:50] LABS: BASO % 1 % (0-3); EOS # 0.1 x10^3/uL (0.0-0.7); EOS % 2 % (0-3); HEMATOCRIT 44.6 % (39.0-53.0); HEMOGLOBIN 14.4 g/dL (13.0-17.5); LYMPH # 1.6 x10^3/uL (1.0-4.8); LYMPH % 47 % (24-48); MEAN CORPUSCULAR HEMOGLOBIN 22 pg (25-35); MEAN CORPUSCULAR HGB CONC 32 g/dL (31-37); MEAN CORPUSCULAR VOLUME 69 fL (79-100); MONO # 0.5 x10^3/uL (0.0-1.1); MONO % 15 % (0-9); NEUT # 1.3 x10^3uL (1.8-7.7); NEUT % 36 % (31-73); PLATELET COUNT 137 x10^3/uL (140-400); RED BLOOD COUNT 6.44 x10^6/uL (4.30-5.70); RED CELL DISTRIBUTION WIDTH 15.9 % (11.5-14.5); WHITE BLOOD COUNT 3.5 x10^3/uL (4.0-11.0)
[2018-03-02 12:53] LABS: CALCIUM 9.3 mg/dL (8.5-10.1); CREATININE 1.2 mg/dL (0.7-1.3); GFR 83.9
[2018-03-02 12:59] LABS: ALBUMIN 3.6 g/dL (3.4-5.0); TOTAL BILIRUBIN 0.4 mg/dL (0.2-1.0); TOTAL PROTEIN 7.1 g/dL (6.4-8.2)
[2018-03-02 13:31] VITALS: BP 121/64
[2018-03-02 14:26] LABS: MICROCYTOSIS MARKED; PLT ESTIMATE ADEQUATE (ADEQUATE)
[2018-03-02 14:28] LABS: HYPOCHROMIA MOD; POLYCHROMASIA SLIGHT
== END 2018-03-02 13:55 | disposition home or self-care (01) ==
LOC: ER 12:00
DX: G40.909 Epilepsy, unspecified, not intractable, without status epilepticus (principal); J45.909 Unspecified asthma, uncomplicated; F17.200 Nicotine dependence, unspecified, uncomplicated
CPT/HCPCS: 36415; 80053; 83605; 85025; 93005; 96365; 99284; J1953

== ENCOUNTER 2018-08-06 12:22 | Emergency (ER) | payer MEDICARE, MEDICAID ==
[~2018-08-06] VITALS: Ht 170.2 cm; Wt 66.7 kg
[2018-08-06] MEDS ORDERED: IV NORMAL SALINE 1000ML BAG 1,000 ML IV ONE (13:00)
[2018-08-06 13:06] LABS: BASO % 0 % (0-3); EOS # 0.2 x10^3/uL (0.0-0.7); EOS % 5 % (0-3); HEMATOCRIT 40.4 % (39.0-53.0); HEMOGLOBIN 12.7 g/dL (13.0-17.5); LYMPH # 1.5 x10^3/uL (1.0-4.8); LYMPH % 38 % (24-48); MEAN CORPUSCULAR HEMOGLOBIN 22 pg (25-35); MEAN CORPUSCULAR HGB CONC 31 g/dL (31-37); MEAN CORPUSCULAR VOLUME 70 fL (79-100); MONO # 0.8 x10^3/uL (0.0-1.1); MONO % 20 % (0-9); NEUT # 1.4 x10^3uL (1.8-7.7); NEUT % 36 % (31-73); PLATELET COUNT 138 x10^3/uL (140-400); RED CELL DISTRIBUTION WIDTH 15.7 % (11.5-14.5); WHITE BLOOD COUNT 3.8 x10^3/uL (4.0-11.0)
[2018-08-06 13:11] LABS: CALCIUM 8.7 mg/dL (8.5-10.1); CREATININE 1.2 mg/dL (0.7-1.3); GFR 83.9; POTASSIUM 4.1 mmol/L (3.5-5.1)
[2018-08-06 13:18] LABS: ALBUMIN 3.6 g/dL (3.4-5.0); ALBUMIN/GLOBULIN RATIO 1.1 (1.0-1.7); MAGNESIUM 1.7 mg/dL (1.8-2.4); TOTAL BILIRUBIN 0.6 mg/dL (0.2-1.0)
[2018-08-06 13:20] LABS: PROTHROMBIN TIME PATIENT 13.9 SEC (11.7-14.0)
--- NOTE | 2018-08-06 13:31 | EKG ---
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
[2018-08-06 13:49] LABS: VAL ACID 79 mcg/mL (50-100)
--- NOTE | 2018-08-06 13:54 | RAD ---
CT head without contrast and CT cervical spine without contrast dated 08/06/2018. Comparison made to 02/14/2018. CLINICAL INDICATION: Seizure. Head and neck pain. TECHNIQUE: Contiguous axial imaging the head performed from skull base to vertex. No contrast administered. In addition, axial imaging of the cervical spine acquired with thin cut coronal and sagittal reconstruction. One or more of the following individualized dose reduction techniques were utilized for this examination: 1. Automated exposure control 2. Adjustment of the mA and/or kV according to patient size 3. Use of iterative reconstruction technique. FINDINGS: There is asymmetric enlargement of the occipital horn right lateral ventricle with associated volume loss of the right parietal and right occipital lobes, similar to prior study. Mild volume loss and sulcal enlargement is also noted at the left parietal lobe, unchanged. No hemorrhage or extra-axial collection. The ventricles are stable in caliber and midline in position. No new areas of altered brain attenuation. Mild/moderate mucosal thickening of the right greater than left ethmoid air cells. Visualized paranasal sinuses and mastoid air cells are otherwise clear. No acute calvarial abnormality. Images of the cervical spine were acquired from skull base to mid T2. There is reversal of the normal cervical lordosis, otherwise sagittal alignment is anatomic. Vertebral body heights are maintained. No prevertebral soft tissue swelling. Posterior elements are intact. No evidence of fracture. Mild endplate hypertrophic changes throughout. Prominent uncovertebral spurring at C4-C5, C5-C6 and C6-C7. There is mild central stenosis at C4-C5 and C5-C6. Mild bilateral foraminal stenosis at the C4-C5 level. Visualized soft tissue structures unremarkable. Limited images of lung apices are clear. IMPRESSION HEAD: 1. No evidence of acute intracranial hemorrhage or mass. 2. Low-density and volume loss at the right parietal-occipital lobe with ex vacuo dilatation of the right occipital horn, similar to prior study. This could be related to remote ischemic event or prior infection or trauma. IMPRESSION CERVICAL SPINE: 1. No evidence of fracture or malalignment. 2. Reversal the normal cervical lordosis, nonspecific. This could be related to spasm or strain. 3. Mild multilevel spondylosis. Electronically signed by: Madhu Tipton MD (08/06/2018 1:52 PM) [id number]
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
[2018-08-06 15:02] LABS: % EOS 6 % (0-5); % LYMPHS 37 % (24-48); % MONOS 17 % (0-10); % SEGS 40 % (35-66); ANISOCYTOSIS SLIGHT; HYPOCHROMIA MOD; PLT ESTIMATE ADEQUATE (ADEQUATE); POIKILOCYTOSIS SLIGHT
[2018-08-06 15:03] LABS: MICROCYTOSIS MOD; OVALOCYTES FEW
[2018-08-06 15:05] VITALS: BP 117/69
== END 2018-08-06 15:23 | disposition home or self-care (01) ==
LOC: ER 12:22
DX: G40.909 Epilepsy, unspecified, not intractable, without status epilepticus (principal); R51 Headache; M47.812 Spondylosis without myelopathy or radiculopathy, cervical region; J45.909 Unspecified asthma, uncomplicated; F17.200 Nicotine dependence, unspecified, uncomplicated
CPT/HCPCS: 36415; 70450; 72125; 80053; 80164; 82550; 83605; 83735; 85007; 85025; 85610; 85730; 93005; 99285; J7030

== ENCOUNTER 2020-04-09 16:06 | Emergency (ER) | payer OTHER, MEDICAID ==
[~2020-04-09] VITALS: Ht 170.2 cm; Wt 65.0 kg
[2020-04-09 16:06] VITALS: BP 122/76
[2020-04-09] MEDS ORDERED: IV NORMAL SALINE 1000ML BAG 1,000 ML IV ONE (16:15)
[2020-04-09 16:20] LABS: BASO # 0.1 x10^3/uL (0.0-0.2); BASO % 1 % (0-3); EOS # 0.1 x10^3/uL (0.0-0.7); EOS % 3 % (0-3); HEMATOCRIT 45.5 % (39.0-53.0); HEMOGLOBIN 14.4 g/dL (13.0-17.5); LYMPH # 1.9 x10^3/uL (1.0-4.8); LYMPH % 42 % (24-48); MEAN CORPUSCULAR HEMOGLOBIN 21 pg (25-35); MEAN CORPUSCULAR HGB CONC 32 g/dL (31-37); MEAN CORPUSCULAR VOLUME 67 fL (79-100); MONO # 0.5 x10^3/uL (0.0-1.1); MONO % 12 % (0-9); NEUT # 1.8 x10^3/uL (1.8-7.7); NEUT % 42 % (31-73); PLATELET COUNT 176 x10^3/uL (140-400); RED BLOOD COUNT 6.75 x10^6/uL (4.30-5.70); RED CELL DISTRIBUTION WIDTH 15.4 % (11.5-14.5); WHITE BLOOD COUNT 4.4 x10^3/uL (4.0-11.0)
--- NOTE | 2020-04-09 16:30 | RAD ---
EXAMINATION: XR CHEST 1V CLINICAL HISTORY: Near syncope EXAM DATE/TIME: 04/09/2020 4:16 PM COMPARISON: None FINDINGS: Lines, Tubes, and Devices: None. Cardiomediastinal Silhouette: Within normal limits. Lungs and Pleura: No evidence of focal airspace consolidation or pleural effusion. Pulmonary vasculat ure unremarkable. Bones and Soft Tissues: No acute osseous abnormality. IMPRESSION: No evidence of acute cardiopulmonary abnormality. Electronically signed by: Subhash Mi DO (04/09/2020 4:27 PM) [id number]
[2020-04-09 16:31] LABS: CALCIUM 8.8 mg/dL (8.5-10.1); CREATININE 1.3 mg/dL (0.7-1.3); GFR 75.6; POTASSIUM 3.6 mmol/L (3.5-5.1)
--- NOTE | 2020-04-09 16:36 | PHYS DOC ---
Past Medical History Past Medical History: Asthma, GERD, Seizure, Other Additional Past Medical Histor: Past Surgical History: No Surgical History Smoking Status: Current Every Day Smoker Alcohol Use: Rarely Drug Use: None General Adult EDM: Chief Complaint: NEAR SYNCOPE HPI: HPI: Patient is a 34 year old with history of asthma, seizures when he was a child, essential tremors, who presents to the ED today complaining of a near syncope episode. 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 Denies any headache, nausea, vomiting, dizziness, chest pain or shortness of breath. Review of Systems: Review of Systems: Constitutional: Denies fever or chills. [] Eyes: Denies change in visual acuity. [] HENT: Denies nasal congestion or sore throat. [] Respiratory: Denies cough or shortness of breath. [] Cardiovascular: Denies chest pain or edema. [] GI: Denies abdominal pain, nausea, vomiting, bloody stools or diarrhea. [] : Denies dysuria. [] Musculoskeletal: Denies back pain or joint pain. [] Integument: Denies rash. [] Neurologic: Reports near syncope episode denies headache, focal weakness or sensory changes. [] Psychiatric: Denies depression or anxiety. [] Heart Score: Risk Factors: Risk Factors: DM, Current or recent (<one month) smoker, HTN, HLP, family history of CAD, obesity. Risk Scores: Score 0 - 3: 2.5% MACE over next 6 weeks - Discharge Home Score 4 - 6: 20.3% MACE over next 6 weeks - Admit for Clinical Observation Score 7 - 10: 72.7% MACE over next 6 weeks - Early Invasive Strategies Current Medications: Current Medications Medications (Trade) Dose Ordered Sig/Bird Start Time Stop Time Status Last Admin Dose Admin Sodium Chloride 1,000 ml @ 1,000 mls/hr 1X ONCE 04/09/20 16:15 04/09/20 17:14 04/09/20 16:17 1,000 MLS/HR Allergies: Allergies: Allergies Coded Allergies Type Severity Reaction Last Updated Verified No Known Drug Allergies 07/19/16 No Physical Exam: PE: Constitutional: Well developed, well nourished, no acute distress, non-toxic appearance. [] HENT: Normocephalic, atraumatic, bilateral external ears normal, oropharynx moist, no oral exudates, nose normal. [] Eyes: PERRLA, EOMI, conjunctiva normal, no discharge. [] Neck: Normal range of motion, no tenderness, supple, no stridor. [] Cardiovascular:Heart rate regular rhythm, no murmur [] Lungs & Thorax: Bilateral breath sounds clear to auscultation [] Abdomen: Bowel sounds normal, soft, no tenderness, no masses, no pulsatile masses. [] Skin: Warm, dry, no erythema, no rash. [] Back: No tenderness, no CVA tenderness. [] Extremities: No tenderness, no cyanosis, no clubbing, ROM intact, no edema. [] Neurologic: Alert and oriented X 3, normal motor function, normal sensory function, no focal deficits noted. Cranial nerves II through XII intact. Tremors noted to the right upper extremity though his tremors seem to stop when you are not paying attention to them Psychologic: Affect normal, judgement normal, mood normal. [] Current Patient Data: Labs: Laboratory Tests Test 04/09/20 16:13 White Blood Count 4.4 x10^3/uL (4.0-11.0) Red Blood Count 6.75 x10^6/uL (4.30-5.70) H Hemoglobin 14.4 g/dL (13.0-17.5) Hematocrit 45.5 % (39.0-53.0) Mean Corpuscular Volume 67 fL (79-100) L Mean Corpuscular Hemoglobin 21 pg (25-35) L Mean Corpuscular Hemoglobin Concent 32 g/dL (31-37) Red Cell Distribution Width 15.4 % (11.5-14.5) H Platelet Count 176 x10^3/uL (140-400) Neutrophils (%) (Auto) 42 % (31-73) Lymphocytes (%) (Auto) 42 % (24-48) Monocytes (%) (Auto) 12 % (0-9) H Eosinophils (%) (Auto) 3 % (0-3) Basophils (%) (Auto) 1 % (0-3) Neutrophils # (Auto) 1.8 x10^3/uL (1.8-7.7) Lymphocytes # (Auto) 1.9 x10^3/uL (1.0-4.8) Monocytes # (Auto) 0.5 x10^3/uL (0.0-1.1) Eosinophils # (Auto) 0.1 x10^3/uL (0.0-0.7) Basophils # (Auto) 0.1 x10^3/uL (0.0-0.2) Platelet Estimate Pending Laboratory Tests 04/09/20 16:13 Vital Signs: Vital Signs Date Time Temp Pulse Resp B/P (MAP) Pulse Ox O2 Delivery O2 Flow Rate FiO2 04/09/20 16:06 98.7 81 18 122/76 (91) 100 Room Air 98.7 EKG: EKG: [] Radiology/Procedures: Radiology/Procedures: []PROCEDURE: PORTABLE CHEST 1V EXAMINATION: XR CHEST 1V CLINICAL HISTORY: Near syncope EXAM DATE/TIME: 04/09/2020 4:16 PM COMPARISON: None FINDINGS: Lines, Tubes, and Devices: None. Cardiomediastinal Silhouette: Within normal limits. Lungs and Pleura: No evidence of focal airspace consolidation or pleural effusion. Pulmonary vasculature unremarkable. Bones and Soft Tissues: No acute osseous abnormality. IMPRESSION: No evidence of acute cardiopulmonary abnormality. Electronically signed by: Subhash Martinez DO (04/09/2020 4:27 PM) [id number] DICTATED and SIGNED BY: SUBHASH MARTINEZ DO DATE: 04/09/20 [id number] Course & Med Decision Making: Course & Med Decision Making Pertinent Labs and Imaging studies reviewed. (See chart for details) This is a 34-year-old male patient presenting to the ED today with a near syncope episode. He arrives in the ED alert oriented x4 in no distress. He has chronic essential tremors to the right upper extremity that somehow stop when you are not paying attention to him CBC with no acute findings, CMP, chest xray and EKG are negative. Orthostatics are negative. He is a smoker he was encouraged to consider smoking cessation Feeling better after IV fluids. D/c to home. Dragon Disclaimer: Dragon Disclaimer: This electronic medical record was generated, in whole or in part, using a voice recognition dictation system. Departure Departure Impression: Primary Impression: Near syncope Additional Impression: Smoking addiction Disposition: 01 DC HOME SELF CARE/HOMELESS Condition: STABLE Referrals: JO ANN SCOTT MD (PCP) Follow-up in 1 week Patient Instructions: Near-Syncope, [id number], Smoking Cessation Additional Instructions: You were evaluated in the emergency room for near syncope episode. Your work-up in the emergency room is negative. Push fluids. Follow-up with your doctor next week. Consider smoking cessation. AVE HUFF APRN Apr 09, 2020 16:35
[2020-04-09 16:37] LABS: ALBUMIN 3.9 g/dL (3.4-5.0); TOTAL BILIRUBIN 0.4 mg/dL (0.2-1.0); TOTAL PROTEIN 7.8 g/dL (6.4-8.2)
[2020-04-09 17:22] LABS: BILIRUBIN,URINE NEGATIVE (NEG); CLARITY,URINE CLEAR; COLOR,URINE YELLOW; NITRITE,URINE NEGATIVE (NEG); PH,URINE 7.5 (<5.0-8.0); PROTEIN,URINE NEGATIVE (NEG-TRACE)
[2020-04-09 17:26] LABS: BARBITURATES NEG (NEG); BENZODIAZEPINES NEG (NEG); CANNABINOIDS NEG (NEG); COCAINE NEG (NEG); METHADONE NEG (NEG); OPIATES NEG (NEG); PHENCYCLIDINE NEG (NEG)
[2020-04-09 17:27] LABS: AMPHETAMINE/METHAMPHETAMINE NEG (NEG)
[2020-04-09 17:31] LABS: BACTERIA,URINE 0 /HPF (0-FEW); RBC,URINE 0 /HPF (0-2); WBC,URINE 0 /HPF (0-4)
[2020-04-09 17:38] LABS: % ATYL 1 % (0-0); % BASOS 1 % (0-3); % EOS 4 % (0-5); % LYMPHS 41 % (24-48); % MONOS 9 % (0-10); % SEGS 44 % (35-66); HYPOCHROMIA SLIGHT; PLT ESTIMATE ADEQUATE (ADEQUATE)
[2020-04-09 17:39] LABS: MICROCYTOSIS MARKED; OVALOCYTES OCC
--- NOTE | 2020-04-11 06:07 | EKG ---
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
== END 2020-04-09 17:58 | disposition home or self-care (01) ==
LOC: ER 16:06
DX: R55 Syncope and collapse (principal); R25.1 Tremor, unspecified; J45.909 Unspecified asthma, uncomplicated; K21.9 Gastro-esophageal reflux disease without esophagitis; F17.200 Nicotine dependence, unspecified, uncomplicated
CPT/HCPCS: 36415; 71045; 80053; 80307; 81001; 83735; 83880; 84145; 84443; 84484; 85007; 85025; 93005; 96360; 99285; G0480; J7030